=== PATIENT | female | born 1965 | race Caucasian/White ===

== ENCOUNTER → 2017-04-28 | Outpatient (CLI) | payer OTHER | LOC: FIMAGING 09:12 | DX: M25.522 Pain in left elbow (principal) ==

== ENCOUNTER 2019-02-06 14:54 | Observation (INO) | payer OTHER ==
--- NOTE | 2019-02-06 14:57 | EDPHY ---
H & P Time Seen by Provider: 02/06/19 14:53 Constitutional: Initial Vital Signs Temperature (C) 37 C 02/06/19 14:55 Heart Rate 127 H 02/06/19 14:55 Respiratory Rate 18 02/06/19 14:55 Blood Pressure 157/106 H 02/06/19 14:55 O2 Sat (%) 93 02/06/19 14:55 O2 Delivery Mode Room Air Allergies/Adverse Reactions: Sulfa (Sulfonamide Antibiotics) Allergy (Intermediate, Verified 02/06/19 15:20) rash swelling Home Medications: Medication Instructions Recorded Cholecalciferol Vit D3 [Vitamin D3 2,000 units PO DAILY 02/06/19 (*)] LORazepam [Ativan (*)] 0.5 mg PO BID@ PRN 02/06/19 LORazepam [Ativan (*)] 0.5 mg PO DAILY 02/06/19 Methylphenidate HCl [Concerta] 54 mg PO DAILY 02/06/19 Nebivolol HCl [Bystolic] 10 mg PO DAILY 02/06/19 PARoxetine HCL [Paroxetine HCl] 30 mg PO HS 02/06/19 Ranitidine HCl 150 mg PO DAILY 02/06/19 Zolpidem Tartrate [Zolpidem 10 mg PO HS 02/06/19 Tartrate] lamoTRIgine [Lamotrigine] 150 mg PO BID 02/06/19 Medical Decision Making - Diagnostics Imaging Results: Imaging Impressions Head CTA 02/06/19 15:01 Impression: 1. Unremarkable angiogram of the head and neck. 2. Subcutaneous air possibly arising from the right shoulder and affecting the pectoralis major muscle. There is trace edema and inflammatory changes in this region. Findings likely related to recent surgery. Stenoses are calculated using [place] Symptomatic Carotid Endarterectomy Trial (NASCET) criteria. Neck CTA 02/06/19 15:01 Impression: 1. Unremarkable angiogram of the head and neck. 2. Subcutaneous air possibly arising from the right shoulder and affecting the pectoralis major muscle. There is trace edema and inflammatory changes in this region. Findings likely related to recent surgery. Stenoses are calculated using [place] Symptomatic Carotid Endarterectomy Trial (NASCET) criteria. Imaging: Discussed imaging studies w/ machine scallop cutter Radiologist, I viewed and interpreted images myself ED Course/Re-evaluation: CHIEF COMPLAINT: Stroke Alert HISTORY OF PRESENT ILLNESS: The patient is a 53 y/o female arriving via EMS from post-surgery recovery as a stroke alert. Per the patient she felt very tired before having a right shoulder arthroscopy. She came out of surgery at 10:30am, 4.5 hours ago, and tried walking at 11:00 but was unable to due to an unsteady gait. Due to her symptoms, the anesthesiologist called EMS and called a stroke alert. Currently the patient is in a right arm sling but has a tremor in her legs. She also states that it is "hard to open her eyes" and she also has "neck pain". No fever , headache, body aches, lightheadedness, chest pain, heart palpitations, shortness of breath, cough, abdominal pain, urinary or bowel complaints. REVIEW OF SYSTEMS: A 10 point review of systems was performed and is negative with the exception of the elements mentioned in the history of present illness. PHYSICAL EXAM: HR, BP, O2 Sat, RR. Temp noted General Appearance: Alert, well hydrated, appropriate, and non-toxic appearing. Head: Atraumatic without scalp tenderness or obvious injury Eyes: Pupils equal, round, reactive to light and accommodation, EOMI, no trauma , no injection. Ears: Clear bilaterally, no perforation, normal landmarks Nose: Atraumatic, no rhinorrhea, clear. Throat: There is no erythema or exudates, no lesions, normal tonsils, mucus membranes moist. Neck: Supple, 2+ carotid upstroke, nontender, no lymphadenopathy. Respiratory: No retractions, no distress, no wheezes, and no accessory muscle use. Lungs are clear to auscultation bilaterally. Cardiovascular: Regular rate and rhythm, no murmurs, rubs, or gallops. Bilateral carotid, radial, dorsalis pedis, and posterior tibial pulses intact. Good capillary refill all extremities. Gastrointestinal: Abdomen is soft, nontender, non-distended, no masses, no rebound, no guarding, no peritoneal signs. Musculoskeletal: Normal active ROM of all extremities, atraumatic. Neurological: Mild ataxia of her lower extremities, right worse than left. There is some mild drift of her right leg. Considerable weakness of her lower extremities. I am unable to full evaluate her upper extremities as she is in a sling. I am concerned that this patient is having a cerebellar stroke. Alert and appropriate. The patient has normal DTRs and non-focal cranial nerves, motor, sensory exam. Skin: No rashes, good turgor, no nodules on palpation. Past medical history: Hypertension, hyperlipidemia, depression, anxiety Past surgical history: Right shoulder arthroscopy, right knee surgery, right bicep surgery Family history: Denies Social history: Lives in [place], , sister at bedside, does not abuse tobacco, drugs, or alcohol DIAGNOSTICS/PROCEDURES/CRITICAL CARE TIME: Head CT: Negative Head CTA: Negative Neck CTA: Negative EKG: The 12 lead EKG was interpreted by myself as sinus tachycardia with a rate of 102, non specific T abnormality, possible Wellan's. See hard copy and/or "tracemaster" electronic copy for interpretation. Echo: Unremarkable. Brain MRI: Unremarkable. Critical care time spent by me, Dr. Lutz, exclusively with this patient was 90 minutes, exclusive of PA time and exclusive of procedures. The organ system at risk was neurovascular and I gave aspirin, had imaging studies performed, and transferred the patient to the hospitalist to prevent worsening of the patients condition. DIFFERENTIAL DIAGNOSIS: The differential diagnosis for the patient's neurologic deficits included but was not limited to peripheral causes, central causes including CVA, TIA, electrolyte abnormalities and dehydration, cardiogenic causes, atypical causes like migraine syndrome. MEDICAL DECISION MAKING: The patient is a 53 y/o female arriving via EMS from post-surgery recovery as a stroke alert. Per the patient she felt very tired before having a right shoulder arthroscopy. She came out of surgery at 10:30am, 4.5 hours ago, and tried walking at 11:00 but was unable to due to an unsteady gait. Due to her symptoms, the anesthesiologist called a stroke alert. On exam the patient has mild ataxia of her lower extremities, right worse than left. There is some mild drift of her right leg. Patient is also having considerable weakness of her lower extremities. I am unable to full evaluate her upper extremities as she is in a sling. I am concerned that this patient is having a cerebellar stroke. This patient does not meed TPA criteria as she just had surgery earlier today. Labs, head CT, head/neck CTA, and EKG ordered. We will also place [facility] on standby. 1453: I met EMS upon arrival 1500: I consulted with Dr. Rhett Gutierrez, neurosurgeon from [facility], regarding this patient. She is still in CT. 1508: I spoke with Dr. Collado, radiologist, regarding this patient's imaging findings. The head CT is negative, Head/neck CTA still pending. 1515: Patient's troponin is 0.04; it is possible that she infarcted in surgery after becoming hypotensive. 1517: Reassessed patient with Dr. Gutierrez on the robot. Patient is an NIH 1 or 2, but this is hard to determine due to patient's recent shoulder surgery. This patient does not need to be sent to [facility] right now, and will plan to be admitted to this hospital for further evaluation. Patient will need to further labs and a possible brain MRI. 1520: Patient's anesthesiologist is in the room. The patient's lower extremity tremor is improving and she is also becoming stronger. 1529: I interpreted patient's EKG as sinus tachycardia with a rate of 102, non specific T abnormality, possible Wellan's. I will page the seo consultant for a consult/echo due to patient's abnormal EKG and troponin. 1530: I spoke with Dr. Tinajero, radiologist, regarding this patient. The head and neck CTA are negative. Brain MRI ordered. 1535: I consulted with the hospitalist service, Dr. Payton accepts admission of this patient. 1536: I consulted with ARI Epperson, seo consultant ARI from [facility], regarding this patient. Echo ordered. [facility] will consult on this patient during her admission. 324mg PO Aspirin administered. 1544: Patient's BP is 173/99; 10mg IV Labetalol ordered. 1552: Reassessed patient as Echo is in the room. 1554: Patient's pressure has decreased to 147/99 without the Labetalol. 1620: Patient is walking on her own to the bathroom. She feels a little bit shaky but much much better than she did postoperatively in the PACU. MRI of her brain without contrast is pending. All of the other neuro imaging studies and echocardiogram are unremarkable at this time. The brain MRI is unremarkable for any acute process according to Dr. Cipriano Collado. Patient's echo is also unremarkable. 1720: Patient has been transferred to the floor in stable condition. - Data Points Laboratory Results: Laboratory Results 02/06/19 15:42 02/06/19 15:08 02/06/19 02/06/19 02/06/19 15:42 15:42 15:08 WBC 11.27 10^3/uL H 10^3/uL (3.80-9.50) RBC 4.05 10^6/uL L 10^6/uL (4.18-5.33) Hgb 12.8 g/dL g/dL (12.6-16.3) POC Hgb Hct 37.8 % L % (38.0-47.0) POC Hct MCV 93.3 fL fL (81.5-99.8) MCH 31.6 pg pg (27.9-34.1) MCHC 33.9 g/dL g/dL (32.4-36.7) RDW 12.4 % % (11.5-15.2) Plt Count 266 10^3/uL 10^3/uL (150-400) MPV 9.1 fL fL (8.7-11.7) Neut % (Auto) 94.0 % H % (39.3-74.2) Lymph % (Auto) 3.5 % L % (15.0-45.0) Harnett % (Auto) 2.0 % L % (4.5-13.0) Eos % (Auto) 0.0 % L % (0.6-7.6) Baso % (Auto) 0.2 % L % (0.3-1.7) Nucleat RBC Rel Count 0.0 % % (0.0-0.2) Absolute Neuts (auto) 10.59 10^3/uL H 10^3/uL (1.70-6.50) Absolute Lymphs (auto) 0.39 10^3/uL L 10^3/uL (1.00-3.00) Absolute Monos (auto) 0.23 10^3/uL L 10^3/uL (0.30-0.80) Absolute Eos (auto) 0.00 10^3/uL L 10^3/uL (0.03-0.40) Absolute Basos (auto) 0.02 10^3/uL 10^3/uL (0.02-0.10) Absolute Nucleated RBC 0.00 10^3/uL 10^3/uL (0-0.01) Immature Gran % 0.3 % % (0.0-1.1) Immature Gran # 0.03 10^3/uL 10^3/uL (0.00-0.10) RBC/WBC/PLT Morphology TNP Platelet Estimate TNP PT 12.9 SEC SEC (12.0-15.0) INR 1.01 (0.83-1.16) APTT 25.8 SEC SEC (23.0-38.0) POC Sodium Sodium 136 mEq/L mEq/L (135-145) POC Potassium Potassium 4.0 mEq/L mEq/L (3.5-5.2) POC Chloride Chloride 100 mEq/L mEq/L (97-110) Carbon Dioxide 25 mEq/l mEq/l (22-31) POC Total CO2 Anion Gap 11 mEq/L mEq/L (6-14) POC BUN BUN 11 mg/dL mg/dL (7-23) Creatinine 0.7 mg/dL mg/dL (0.6-1.0) POC Creatinine Estimated GFR > 60 Glucose 144 mg/dL H mg/dL (70-100) POC Glucose Calcium 9.4 mg/dL mg/dL (8.5-10.4) POC Troponin I 02/06/19 02/06/19 15:04 15:02 WBC RBC Hgb POC Hgb 13.9 gm/dL gm/dL (12.6-16.3) Hct POC Hct 41 % % (38-47) MCV MCH MCHC RDW Plt Count MPV Neut % (Auto) Lymph % (Auto) Harnett % (Auto) Eos % (Auto) Baso % (Auto) Nucleat RBC Rel Count Absolute Neuts (auto) Absolute Lymphs (auto) Absolute Monos (auto) Absolute Eos (auto) Absolute Basos (auto) Absolute Nucleated RBC Immature Gran % Immature Gran # RBC/WBC/PLT Morphology Platelet Estimate PT INR APTT POC Sodium 141 mEq/L mEq/L (135-145) Sodium POC Potassium 3.8 mEq/L mEq/L (3.3-5.0) Potassium POC Chloride 103 mEq/L mEq/L (97-110) Chloride Carbon Dioxide POC Total CO2 25 mEq/L mEq/L (22-31) Anion Gap POC BUN 10 mg/dL mg/dL (7-23) BUN Creatinine POC Creatinine 0.7 mg/dL mg/dL (0.6-1.0) Estimated GFR Glucose POC Glucose 151 mg/dL H mg/dL (70-100) Calcium POC Troponin I 0.04 ng/mL ng/mL (0.00-0.08) Medications Given: Hydrocodone Bitart/Acetaminophen (Thomson 5/325) 1 - 2 tab PO Q4HRS PRN PRN Reason: Pain, Moderate Able to Take PO Stop: 02/16/19 16:54 Last Admin: 02/06/19 20:11 Dose: 1 tab Sodium Chloride (Ns) 1,000 mls @ 100 mls/hr IV CONT MIKALA Stop: 08/05/19 16:59 Last Admin: 02/06/19 17:38 Dose: 1,000 mls Lamotrigine (Lamictal) 150 mg PO BID MIKALA Stop: 08/05/19 20:59 Last Admin: 02/06/19 20:11 Dose: 150 mg Paroxetine HCl (Paxil) 30 mg PO HS MIKALA Stop: 08/05/19 20:59 Last Admin: 02/06/19 20:12 Dose: 30 mg Zolpidem Tartrate (Ambien) 10 mg PO HS MIKALA Stop: 08/05/19 20:59 Last Admin: 02/06/19 21:14 Dose: 10 mg Discontinued Medications Aspirin (Aspirin) 324 mg PO EDNOW ONE Stop: 02/06/19 15:41 Last Admin: 02/06/19 15:55 Dose: 324 mg Labetalol HCl (Trandate Injection) 20 mg IVP EDNOW ONE Stop: 02/06/19 15:45 Last Admin: 02/06/19 18:22 Dose: Not Given Point of Care Test Results: Chemistry 02/06/19 02/06/19 15:04 15:02 POC Sodium 141 mEq/L mEq/L (135-145) POC Potassium 3.8 mEq/L mEq/L (3.3-5.0) POC Chloride 103 mEq/L mEq/L (97-110) POC Total CO2 25 mEq/L mEq/L (22-31) POC BUN 10 mg/dL mg/dL (7-23) POC Creatinine 0.7 mg/dL mg/dL (0.6-1.0) POC Glucose 151 mg/dL H mg/dL (70-100) POC Troponin I 0.04 ng/mL ng/mL (0.00-0.08) ISTAT H&H 02/06/19 15:02 POC Hgb 13.9 gm/dL gm/dL (12.6-16.3) POC Hct 41 % % (38-47) Departure - Departure Disposition: [facility] Inpatient Acute Clinical Impression: Acute ischemic stroke, Ataxia Lower extremity weakness Qualifiers: Laterality: bilateral Qualified Code(s): R29.898 - Other symptoms and signs involving the musculoskeletal system Condition: Serious Report Scribed for: Michael Lutz Report Scribed by: Carlotta Peace Date of Report: 02/06/19 Time of Report: 15:44
[2019-02-06] MEDS ORDERED: ASPIRIN 81 MG CHEWABLE TAB PO ONE (15:40)
[2019-02-06] MEDS ORDERED: LABETALOL HCL 5 MG/ML 20 ML MDV IVP ONE (15:44)
[2019-02-06 16:03] LABS: PLATELET COUNT 266 10^3/uL (150-400)
[2019-02-06 16:17] LABS: INR 1.01 (0.83-1.16); PROTIME(PATIENT) 12.9 SEC (12.0-15.0)
[2019-02-06] MEDS ORDERED: IOPAMIDOL (ISOVUE 370) 100 ML BTL IV ONE (16:22)
[2019-02-06] MEDS ORDERED: ACETAMINOPHEN 325 MG TAB PO PRN (16:55)
[2019-02-06] MEDS ORDERED: PROMETHAZINE HCL 25 MG/ML INJ IVP PRN (16:55)
[2019-02-06] MEDS ORDERED: LABETALOL HCL 5 MG/ML 20 ML MDV IVP PRN (16:55)
[2019-02-06] MEDS ORDERED: LORazepam 2 MG/ML INJ IVP PRN (16:55)
[2019-02-06] MEDS ORDERED: HYDROmorphONE/DILAUDID 1 MG/ML INJ IVP PRN (16:55)
[2019-02-06] MEDS ORDERED: ONDANSETRON 4 MG/2 ML VIAL IVP PRN (16:55)
[2019-02-06] MEDS ORDERED: LORazepam 0.5 MG TAB PO PRN ×2 (16:55→22:00)
[2019-02-06] MEDS ORDERED: ONDANSETRON DISINTEGRATING 4 MG TAB PO PRN (16:55)
--- NOTE | 2019-02-06 16:55 | PDGENHP ---
History and Physical - Chief Complaint ataxia post surgery - History of Present Illness 53 yo F with limited PMH presenting from the surgery center where she had been undergoing an outpatient right shoulder arthroscopy and was found to be having gait instability post operatively. She was to be released home but when she got up to walk she was unable to walk and had bilateral leg tremors as well. A stroke alert was called and she was brought to the ER for further evaluation. After arrival her symptoms were improving although she still had some right leg tremors and weakness compared to the left, her right arm was in a sling, but her left seemed normal. Imaging including head/neck CTA, brain MRI and echo were all unremarkable. Patient was also complaining of headache and difficulty opening her eyes that seemed to be due to pain as well. She states she has had surgery in the past without similar issues. History Information - Allergies/Home Medication List Allergies/Adverse Reactions: Sulfa (Sulfonamide Antibiotics) Allergy (Intermediate, Verified 02/06/19 15:20) rash swelling Home Medications: Cholecalciferol Vit D3 [Vitamin D3 (*)] 2,000 units PO DAILY 02/06/19 [Last Taken Unknown] LORazepam [Ativan (*)] 0.5 mg PO BID@14,22 PRN 02/06/19 [Last Taken Unknown] LORazepam [Ativan (*)] 0.5 mg PO DAILY 02/06/19 [Last Taken Unknown] Methylphenidate HCl [Concerta] 54 mg PO DAILY 02/06/19 [Last Taken Unknown] Nebivolol HCl [Bystolic] 10 mg PO DAILY 02/06/19 [Last Taken Unknown] PARoxetine HCL [Paroxetine HCl] 30 mg PO HS 02/06/19 [Last Taken Unknown] Ranitidine HCl 150 mg PO DAILY 02/06/19 [Last Taken Unknown] Zolpidem Tartrate [Zolpidem Tartrate] 10 mg PO HS 02/06/19 [Last Taken Unknown] lamoTRIgine [Lamotrigine] 150 mg PO BID 02/06/19 [Last Taken Unknown] I have personally reviewed and updated: family history, medical history, social history, surgical history - Past Medical History GERD, hypertension, psychiatric history - Surgical History Additional surgical history: several shoulder surgeries - Family History Positive for: non-pertinent - Social History Smoking Status: Never smoked Alcohol Use: None Drug Use: None Review of Systems Review of Systems: ROS: 10pt was reviewed & negative except for what was stated in HPI & below Physical Exam Physical Exam: Temp Pulse Resp BP Pulse Ox 37 C 92 18 142/97 H 94 02/06/19 14:55 02/06/19 16:15 02/06/19 16:15 02/06/19 16:15 02/06/19 16:15 Constitutional: appears nourished, uncomfortable Eyes: PERRL, anicteric sclera Ears, Nose, Mouth, Throat: moist mucous membranes, hearing normal Cardiovascular: regular rate and rhythym, no murmur, rub, or gallop, No edema Respiratory: no respiratory distress, no rales or rhonchi, clear to auscultation Gastrointestinal: normoactive bowel sounds, soft, non-tender abdomen Genitourinary: no bladder tenderness Skin: warm, normal color Musculoskeletal: abnormal gait, No muscular tenderness Neurologic: AAOx3, weakness (slight RLE weakness compared to left), CN II-XII Intact, other (RLE tremor/right finger tremor), No numbness Psychiatric: anxious Lab Data & Imaging Review 02/06/19 15:42 02/06/19 15:08 WBC 11.27 10^3/uL (3.80-9.50) H 02/06/19 15:42 RBC 4.05 10^6/uL (4.18-5.33) L 02/06/19 15:42 Hgb 12.8 g/dL (12.6-16.3) 02/06/19 15:42 POC Hgb 13.9 gm/dL (12.6-16.3) 02/06/19 15:02 Hct 37.8 % (38.0-47.0) L 02/06/19 15:42 POC Hct 41 % (38-47) 02/06/19 15:02 MCV 93.3 fL (81.5-99.8) 02/06/19 15:42 MCH 31.6 pg (27.9-34.1) 02/06/19 15:42 MCHC 33.9 g/dL (32.4-36.7) 02/06/19 15:42 RDW 12.4 % (11.5-15.2) 02/06/19 15:42 Plt Count 266 10^3/uL (150-400) 02/06/19 15:42 MPV 9.1 fL (8.7-11.7) 02/06/19 15:42 PT 12.9 SEC (12.0-15.0) 02/06/19 15:42 INR 1.01 (0.83-1.16) 02/06/19 15:42 APTT 25.8 SEC (23.0-38.0) 02/06/19 15:42 POC Sodium 141 mEq/L (135-145) 02/06/19 15:02 Sodium 136 mEq/L (135-145) 02/06/19 15:08 POC Potassium 3.8 mEq/L (3.3-5.0) 02/06/19 15:02 Potassium 4.0 mEq/L (3.5-5.2) 02/06/19 15:08 POC Chloride 103 mEq/L (97-110) 02/06/19 15:02 Chloride 100 mEq/L (97-110) 02/06/19 15:08 Carbon Dioxide 25 mEq/l (22-31) 02/06/19 15:08 POC Total CO2 25 mEq/L (22-31) 02/06/19 15:02 Anion Gap 11 mEq/L (6-14) 02/06/19 15:08 POC BUN 10 mg/dL (7-23) 02/06/19 15:02 BUN 11 mg/dL (7-23) 02/06/19 15:08 Creatinine 0.7 mg/dL (0.6-1.0) 02/06/19 15:08 POC Creatinine 0.7 mg/dL (0.6-1.0) 02/06/19 15:02 Estimated GFR > 60 02/06/19 15:08 Glucose 144 mg/dL (70-100) H 02/06/19 15:08 POC Glucose 151 mg/dL (70-100) H 02/06/19 15:02 Calcium 9.4 mg/dL (8.5-10.4) 02/06/19 15:08 POC Troponin I 0.04 ng/mL (0.00-0.08) 02/06/19 15:04 Visualized and Interpreted imaging results: Yes Interpretation: head/neck CTA: normal. brain MRI: nothing acute Visualized and Interpreted EKG results: Yes EKG Interpretation: Positive for: normal sinsus rhythm, T waves inversion Assessment & Plan Assessment: Acute ischemic stroke (Acute) Ataxia (Acute) Lower extremity weakness (Acute) 53 yo F with PMH of depression/anxiety, HTN presenting from surgery center with post op ataxia # ataxia: with associated bilateral lower extremity tremor and slight RLE weakness compared to left, has been rapidly improving since arrival though still slightly tremulous on RLE. No TPA per Steve neuro given rapid improvement. Query if this is an anesthesia reaction versus less likely related to benzo withdrawal--she is chronically on ativan at home and unclear when she took this last. Will monitor on tele, serial neuro checks, neurology to evaluate in am. MRI does show non specific white matter abnormalities which per radiology most likely mild microvascular ischemic gliosis but demyelinating disease/atypical migraine also in differential. # headache/eye pain: patient having issues with opening her eyes and with headache since surgery, as above imaging without acute findings, ? migraine, does have e/o gel in eyes from surgery and will also order natural tears # HTN: has been poorly controlled since arrival however patient also appears quite anxious, will continue home meds and monitor # depression/anxiety: continue home medications # observation status # Patient new to my care. Old records reviewed and summarized as above. Care plan reviewed with ER doctor as above, neurology consult requested. Further hx obtained from patients friend present at bedside.
[2019-02-06] MEDS ORDERED: NS 1,000 ML IV SCH (17:00)
--- NOTE | 2019-02-06 17:14 | ECHO ---
[email or web address] [address] Main: [phone] Echocardiography Examination Transthoracic Name: SARATH CANNON MR#: [id number] Study Date: 02/06/2019 Study Time: 03:52 PM Date of : 1965 Age: 53 year(s) Height: 157.5 cm (62 in.) Weight: 58.06 kg (128 lb.) BSA: 1.58 m2 Gender: Female Examination: Echo Contrast: Image Quality: Adequate Rhythm: Heart Rate: 94 bpm BP: 147 mmHg/99 mmHg Indication: Chest Pain Procedure Staff Referring Physician: Sap Bobj Developer: Maria Isabel Duran [facility] Reading Physician: Hudson Hernandez MD Requesting Provider: Ordering Physician: Michael Lutz Indication: Chest Pain Measurements Chambers AV/MV Label Value Normal Value Label Value Normal Value LVOT Vmax 0.96 m/s (0.7m/s - 1.1m/s) AV PGmax 6 mmHg LVOTd 2 cm (1.8cm - 2cm) AV Vmax 1.24 m/s LVDd, 2D 3.6 cm (3.9cm - 5.3cm) JUNIOR (Vmax) 2.4 cm2 LVDs, 2D 2.1 cm (2.1cm - 4cm) MV E Vmax 0.5 m/s IVSd, 2D 0.9 cm (0.6cm - 1.1cm) MV A Vmax 0.71 m/s LVPWd, 2D 0.8 cm MV E/A 0.7 LVEF, BP 69 % (55% - 70%) MV E/E' lateral 3.8 LVEF, 2D 74 % (54% - 74%) MV E/E' septal 10.7 (0.5 - 1.7) LA Volume, BP 28 ml (22ml - 52ml) MV E' septal 0.05 m/s LADs, 2D 2.3 cm (2.7cm - 3.8cm) MV E' lateral 0.13 m/s LAESV index, BP 17.7 ml/m2 MV E/E' mean 5.56 Additional Vessels MV E' mean 0.09 m/s Label Value Normal Value TV/PV AoAsc 3 cm Label Value Normal Value AoRoot, MM 2.5 cm (2.2cm - 3.7cm) PV PGmax 4 mmHg PV Vmax, Caliper 1.02 m/s (0.6m/s - 0.9m/s) Conclusions Patient: SARATH CANNON Study Date: 02/06/2019 Page 1 of 3 03:52 PM Left Ventricle: Left ventricle is normal in size. Normal global systolic left ventricular function. EF range is estimated at 60 % - 65 %. Right Ventricle: Right ventricular systolic function is normal. IVC: The inferior vena cava is normal in size and course. Pericardium: No pericardial effusion. Findings Left Ventricle: Left ventricle is normal in size. Normal global systolic left ventricular function. EF evaluated by EF (biplane Moran's). The ejection fraction, measured by Simpsons method, is 69 %. EF range is estimated at 60 % - 65 %. Left ventricle wall thickness is normal. There are no regional wall motion abnormalities. Left ventricular diastolic function parameters are normal. Right Ventricle: Normal size right ventricle. Right ventricular systolic function is normal. Left Atrium: The left atrium is normal in size. IAS: Normal appearing atrial septum. Right Atrium: The right atrium is normal in size. Mitral Valve: Mitral valve appears structurally normal. No mitral regurgitation. No mitral valve stenosis. Aortic Valve: The aortic valve is structurally normal and trileaflet. No aortic valve regurgitation. There is no aortic stenosis. Tricuspid Valve: Tricuspid valve leaflets are normal in appearance and function. No tricuspid regurgitation. No tricuspid valve stenosis. Pulmonary artery pressure normal. Pulmonic Valve: Pulmonic leaflets exhibit normal cuspal separation. No pulmonic valve regurgitation is evident. There is no pulmonic valve stenosis. Aorta: The aorta is normal. The aortic root size in M-mode measures 2.5 cm. The ascending aorta measures 3.0 cm. Ascending aorta is normal in size. Aorta Measurements AoRoot, MM is 2.5 cm. IVC: The inferior vena cava is normal in size and course. Pericardium: No pericardial effusion. Exam Details Procedure Ordered: Echo Procedure Status: Routine study Image Quality: Adequate Facility Location: Cardiac Echo 1 Patient: SARATH CANNON Study Date: 02/06/2019 Page 2 of 3 03:52 PM (No Signature Object) Patient: SARATH CANNON Study Date: 02/06/2019 Page 3 of 3 03:52 PM [id number]
[2019-02-06] MEDS: HYDROCODONE/APAP 5/325 TAB PO PRN ×2 (17:38→20:11)
[2019-02-06] MEDS: lamoTRIgine 100 MG TAB PO SCH (20:11)
[2019-02-06] MEDS ORDERED: ZOLPIDEM TARTRATE 5 MG TAB PO SCH (21:00)
[2019-02-06] MEDS: oxyCODONE IR 5 MG TAB PO PRN (22:05)
--- NOTE | 2019-02-06 22:28 | CPEKG ---
Test Reason : OPEN Blood Pressure : / mmHG Vent. Rate : 102 BPM Atrial Rate : 101 BPM P-R Int : 182 ms QRS Dur : 092 ms QT Int : 399 ms P-R-T Axes : 042 042 061 degrees QTc Int : 520 ms Sinus tachycardia Nonspecific T abnrm, anterolateral leads Prolonged QT interval Confirmed by Michael Lutz ([id number]) on 02/06/2019 10:27:53 PM Referred By: Michael Lutz Confirmed By:Michael Lutz
[2019-02-07] MEDS: HYDROCODONE/APAP 5/325 TAB PO PRN (04:43)
[2019-02-07] MEDS: oxyCODONE IR 5 MG TAB PO PRN ×3 (06:26→13:14)
[2019-02-07] MEDS: lamoTRIgine 100 MG TAB PO SCH (08:58)
[2019-02-07] MEDS ORDERED: LORazepam 0.5 MG TAB PO SCH (09:00)
[2019-02-07] MEDS ORDERED: ASPIRIN 81 MG CHEWABLE TAB PO SCH (09:00)
[2019-02-07] MEDS ORDERED: CHOLECALCIFEROL VIT D3 2,000 UNITS TAB/CAP PO SCH (09:00)
[2019-02-07] MEDS ORDERED: FAMOTIDINE 20 MG TAB PO SCH (09:00)
--- NOTE | 2019-02-07 10:18 | SOAPPROG ---
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
--- NOTE | 2019-02-07 10:34 | POSTANESTH ---
Post Anesthetic Evaluation Cardiovascular Status: Normal, Stable Respiratory Status: Normal, Stable Level of Consciousness/Mental Status: Can Participate in Eval Complications Possibly Related to Anesthesia: Other, See Comments (s/p shoulder surgery with headache/post-op ataxia that was concerning for cerebellar insult. All work-ups so far negative and mariel is feeling better and ambulating. Unusual post-op presentation of unclear etiology as patient had stable hemodynamics throughout and practically the same anesthetic in october.)
[2019-02-07 11:25] VITALS: BP 140/85
--- NOTE | 2019-02-07 14:00 | NEUROPROG ---
Assessment: [id number] - Neurology Consult: - CC: Dr. Payton (hospitalist) consulted neurology for possible stroke. Results placed in EMR for her review. - HPI: 02/07/19: Pt had a R shoulder procedure at a surgery center on 02/06/19 and developed post-op gait instability and bilateral leg tremor. She had an associated headache. Symptoms gradually improved over hours. Head/neck CTA and brain MRI wo showed no acute changes or stroke. Her neurologic exam on 02/07 showed no neurologic problems (right arm in a sling so could not be tested) . I felt she possibly had a reaction to anesthesia or an atypical migraine. Stroke or TIA seems unlikely given length of symptoms (Hours) but no ischemia on brain MRI. I would expect pt to improve with time. - PMHx: GERD, HTN, psychiatric history, shoulder surgeries - SHx: no tobacco FHx: no strokes - ROS: Pt denied acute fever, total vision loss, active severe chest pain, respiratory failure, total body severe rash, total bowel/bladder incontinence, psychosis, active seizures, or active bleeding - O: VS reviewed General: Alert Eyes: Fundoscopic exam not able to visualize optic disks CV: Heart RRR, no murmur, no carotid bruit Lungs: Clear to auscultation bilaterally, no rhonchi or rales Neuro: - Mental: . Oriented x person/place/date . concentration appears normal . speech fluency/comprehension normal . memory appears normal . fund of knowledge appear intact - Cranial Nerves: . II: PERRL, VFFTC . III/IV/: EOMI, no nystagmus, normal smooth pursuits, no Ptosis . V: facial sensation intact to LT . VII: face symmetric to eye closure and smile . VIII: hearing intact to conversation . IX/X: uvula raises symmetrically . XI: SCM 5/5 B/L strength . XII: tongue protrudes midline w/nl strength - Motor: . Tone: normal tone in all 4 extremity . Strength: no pronator drift, strength 5/5 throughout (right arm in sling so could not test) - Reflexes: B/L bic/BR/patella 2/4 - Sensory: all 4 extremity intact to light touch - Coord: FAZAL wnl, [id number] wnl - Gait: deferred - Labs: 02/07/19- LDL 165 - Rads: 02/06/19- Head/neck CTA: Unremarkable angiogram of the head and neck - 02/06/19- Brain MRI wo: No acute infarct, acute hemorrhage, or hydrocephalus. Specifically no brainstem or cerebellar infarct (I personally visualized the images on 02/07/19) - Assessment: 1. Transient bilateral leg tremor, gait instability, and headache after shoulder surgery on 02/06/19: I felt she possibly had a reaction to anesthesia or an atypical migraine. Stroke or TIA seems unlikely given length of symptoms (Hours) but no ischemia on brain MRI. I would expect pt to improve with time. - 2. History of psychiatric disease: This increases chance of atypical migraines in my experience - Plan: - No further inpatient neurologic w/u needed, neurology will sign off - F/U with neurology clinic PRN Objective: Vital Signs Temp Pulse Resp BP Pulse Ox 36.4 C 77 18 140/85 H 93 02/07/19 11:24 02/07/19 11:24 02/07/19 11:24 02/07/19 11:24 02/07/19 11:24 02/06/19 02/07/19 02/08/19 05:59 05:59 05:59 Intake Total 200 1850 Output Total 950 750 Balance -750 1100 PT 12.9 SEC (12.0-15.0) 02/06/19 15:42 INR 1.01 (0.83-1.16) 02/06/19 15:42 Allergies/Adverse Reactions: Sulfa (Sulfonamide Antibiotics) Allergy (Intermediate, Verified 02/06/19 15:20) rash swelling
--- NOTE | 2019-02-07 14:32 | ASMTCMCOM ---
CM Note CM Note Notes: CM reviewed pt's chart for d/c planning.Pt is a 53 y/o woman, who was sent to the ED by ambulance for stroke like symptoms, immediately following out-pt right shoulder arthroscopy. Pt is being treated for anxiety, depression and HTN. She is being kept for evaluation and observation. OT/PT ordered. No follow up care is being recommended. No CM d/c needs identified at this time; CM will follow for changes. D/C Plan: Independent Date Signed: 02/07/2019 02:31 PM Electronically Signed By:Bebe Delcid
--- NOTE | 2019-02-07 15:20 | HOSPPROG ---
Hospitalist Progress Note Assessment/Plan: #Gait instability: negative stroke eval. Migraine vs anesthesia #Shoulder repair: per ortho OK to DC See dictated DC summary Subjective: feeling like self today Objective: Vital Signs Temp Pulse Resp BP Pulse Ox 36.4 C 77 18 140/85 H 93 02/07/19 11:24 02/07/19 11:24 02/07/19 11:24 02/07/19 11:24 02/07/19 11:24 02/06/19 02/07/19 02/08/19 05:59 05:59 05:59 Intake Total 200 1850 Output Total 950 750 Balance -750 1100 PT 12.9 SEC (12.0-15.0) 02/06/19 15:42 INR 1.01 (0.83-1.16) 02/06/19 15:42 - Time Spent With Patient Time Spent with Patient: greater than 35 minutes Time Spent with Patient: Greater than 35 minutes spent on this patients care, greater than 50% of time spent counseling, educating, and coordinating care regarding the above mentioned plan. - Physical Exam Constitutional: no apparent distress Eyes: PERRL Ears, Nose, Mouth, Throat: moist mucous membranes Cardiovascular: regular rate and rhythym Respiratory: no respiratory distress Gastrointestinal: normoactive bowel sounds Genitourinary: no bladder fullness Musculoskeletal: other (righy shoulder in sling) Neurologic: AAOx3, CN II-XII Intact Psychiatric: interacting appropriately ICD10 Worksheet Patient Problems: Problems Problem Status Onset Acute ischemic stroke Acute Ataxia Acute Lower extremity weakness Acute
--- NOTE | 2019-02-07 15:32 | CPEKG ---
Test Reason : OPEN Blood Pressure : / mmHG Vent. Rate : 064 BPM Atrial Rate : 063 BPM P-R Int : 172 ms QRS Dur : 093 ms QT Int : 448 ms P-R-T Axes : 033 024 068 degrees QTc Int : 463 ms Sinus rhythm Confirmed by Michelle Gómez ([id number]) on 02/07/2019 3:31:40 PM Referred By: Avelina Payton Confirmed By:Michelle Gómez
--- NOTE | 2019-02-07 15:50 | GDS ---
[f rep st] DISCHARGE SUMMARY DISCHARGE DIAGNOSES: 1. Leg tremor/ataxia. 2. Gastroesophageal reflux disease. 3. Hypertension. 4. Psychiatric history. 5. Status post right shoulder scope. HISTORY OF PRESENT ILLNESS: A 53-year-old female with hypertension, who [facility]roscopy. She was having gait instability and leg tremor. Stroke Alert was called, and she was brought to the ER for further evaluation. Imaging including head and neck CTA, brain MRI, and echocardiogram were all unremarkable. HOSPITAL COURSE BY PROBLEM: 1. Ataxia/leg tremor: Possible migraine versus anesthesia. She had a negative stroke evaluation including head CT, CTA, and MRI, as well as echocardiogram. No evidence of arrhythmia. Dr. Vega with Neurology evaluated and states not likely TIA given short duration and negative findings. She can follow up with Neurology as needed. 2. Hyperlipidemia: Has been off medications for 6 months. I restarted Lipitor. 3. Hypertension: Continue home medications. 4. Depression/anxiety: Home medications. DISPOSITION: The patient is stable for discharge home. MEDS: statin FOLLOWUP: 1. Primary care physician to follow lipids. 2. Neurology as needed. /[id number]/MODL MTDD
== END 2019-02-07 16:16 | disposition home or self-care (01) ==
LOC: EDUNIT# → F3N 17:18
PROVIDERS: ADMIT Internal Medicine; ATTEND Internal Medicine
DX: R25.1 Tremor, unspecified (principal); R26.0 Ataxic gait; R51 Headache; K21.9 Gastro-esophageal reflux disease without esophagitis; I10 Essential (primary) hypertension; F32.9 Major depressive disorder, single episode, unspecified; F41.9 Anxiety disorder, unspecified; Z98.890 Other specified postprocedural states
CPT/HCPCS: 70450; 70496; 70498; 70551; 93005; 93306; 97161; 97165; 99291; 99292; G0378; 82435-PO; 82565-PO; 82947-PO; 84132-PO; 84295-PO; 84484-ER; 84520-PO; 85014-ER; Q9967